=== PATIENT | male | born 1960 | race Caucasian/White ===

== ENCOUNTER 2023-03-19 09:04 | Outpatient (REF) | payer OTHER, SELFPAY ==
[2023-03-19 11:14] LABS: MANUAL DIFF FLAG NO
[2023-03-19 11:17] LABS: Basophils Percent Auto 0.5 % (0-2); Eosinophils Absolute Auto 0.1 X10*3/uL (0.0-0.4); Eosinophils Percent Auto 0.8 % (0-4); Hematocrit 35.7 % (42.0-52.0); Hemoglobin 12.7 g/dl (14.0-18.0); Imm Gran Abs Auto 0.04 X10*3/uL (0.00-0.03); Imm Gran Pct Auto 0.7 % (0.0-0.4); Lymphocytes Absolute Auto 1.7 X10*3/uL (1.2-4.9); Lymphocytes Percent Auto 28.6 % (20-40); Mean Corpuscular HGB Conc 35.6 g/dl (31.0-36.0); Mean Corpuscular Hemoglobin 33.8 pg (27.0-33.0); Mean Corpuscular Volume 94.9 fL (80.0-98.0); Mean Platelet Volume 8.4 fL (9.4-12.4); Monocytes Absolute Auto 0.7 X10*3/uL (0.1-1.2); Monocytes Percent Auto 12.3 % (2-11); Neutrophils Absolute Auto 3.4 x10*3/uL (2.0-8.3); Neutrophils Percent Auto 57.1 % (45-73); Platelet Count 342 X10*3/uL (160-400); Red Blood Count 3.76 X10*6/uL (4.60-5.80); Red Cell Distribution Width 11.9 % (11.0-16.0); White Blood Count 5.9 X10*3/uL (4.8-10.8)
[2023-03-19 12:16] LABS: Alanine Aminotransferase 15 U/L (0-40); Albumin Level 4.1 g/dL (3.5-5.0); Alkaline Phosphatase 59 U/L (39-117); Anion Gap 11 (12-20); Aspartate Amino Transferase 15 U/L (5-37); Bilirubin Total 0.8 mg/dL (0.0-1.0); Blood Urea Nitrogen 7 mg/dL (9-16); Calcium 9.3 mg/dL (8.4-10.2); Carbon Dioxide 26 mmol/L (22-29); Chloride 92 mmol/L (96-108); Cholesterol 164 mg/dL; Estimated Glomerular Filt Rate > 60; Glucose Random 94 mg/dL (60-115); HDL Cholesterol 53 mg/dL; Potassium 4.4 mmol/L (3.3-5.1); Sodium 125 mmol/L (135-145); Total Protein 6.7 g/dL (6.5-8.0)
[2023-03-19 13:13] LABS: Prostate Specific Antigen 0.14 ng/mL (<0.05-4.0); Vitamin B12 931 pg/mL (200-900); Vitamin D 25-OH Total 40.2 ng/mL (>30)
[2023-03-19 16:59] LABS: LDL Cholesterol Calculated 99 mg/dl; Triglycerides 63 mg/dL
== END 2023-03-19 09:05 | disposition home or self-care (01) ==
LOC: HO.HMGCLDS 09:04
PROVIDERS: Visit Provider Internal Medicine
DX: Z12.5 Encounter for screening for malignant neoplasm of prostate (principal); I10 Essential (primary) hypertension; E55.9 Vitamin D deficiency, unspecified
CPT/HCPCS: 36415; 80053; 80061; 82306; 82607; 84153; 85025

== ENCOUNTER 2023-07-13 15:42 | Outpatient (REF) | payer OTHER, SELFPAY ==
[2023-07-13 17:52] LABS: Alanine Aminotransferase 14 U/L (0-40); Albumin Level 4.2 g/dL (3.5-5.0); Alkaline Phosphatase 63 U/L (39-117); Anion Gap 11 (12-20); Aspartate Amino Transferase 18 U/L (5-37); Blood Urea Nitrogen 11 mg/dL (9-16); Calcium 9.4 mg/dL (8.4-10.2); Carbon Dioxide 26 mmol/L (22-29); Chloride 94 mmol/L (96-108); Estimated Glomerular Filt Rate > 60; Glucose Random 90 mg/dL (60-115); Potassium 4.2 mmol/L (3.3-5.1); Sodium 127 mmol/L (135-145); Total Protein 7.3 g/dL (6.5-8.0)
[2023-07-13 18:00] LABS: Bilirubin Total < 0.5 mg/dL (0.0-1.0)
== END 2023-07-13 15:43 | disposition home or self-care (01) ==
LOC: HO.MANLDS 15:42
PROVIDERS: Visit Provider Internal Medicine
DX: E87.1 Hypo-osmolality and hyponatremia (principal)
CPT/HCPCS: 36415; 80053

== ENCOUNTER 2024-02-24 10:52 | Outpatient (REF) | payer OTHER, SELFPAY ==
[2024-02-24 13:45] LABS: MANUAL DIFF FLAG NO
[2024-02-24 13:54] LABS: Basophils Absolute Auto 0.1 X10*3/uL (0.0-0.2); Basophils Percent Auto 0.8 % (0-2); Eosinophils Absolute Auto 0.4 X10*3/uL (0.0-0.4); Eosinophils Percent Auto 4.5 % (0-4); Hematocrit 36.5 % (42.0-52.0); Hemoglobin 12.8 g/dl (14.0-18.0); Imm Gran Abs Auto 0.03 X10*3/uL (0.00-0.03); Imm Gran Pct Auto 0.3 % (0.0-0.4); Lymphocytes Absolute Auto 2.5 X10*3/uL (1.2-4.9); Lymphocytes Percent Auto 28.7 % (20-40); Mean Corpuscular HGB Conc 35.1 g/dl (31.0-36.0); Mean Corpuscular Volume 94.1 fL (80.0-98.0); Mean Platelet Volume 8.7 fL (9.4-12.4); Monocytes Absolute Auto 0.9 X10*3/uL (0.1-1.2); Monocytes Percent Auto 10.6 % (2-11); Neutrophils Absolute Auto 4.8 x10*3/uL (2.0-8.3); Neutrophils Percent Auto 55.1 % (45-73); Platelet Count 335 X10*3/uL (160-400); Red Blood Count 3.88 X10*6/uL (4.60-5.80); Red Cell Distribution Width 11.9 % (11.0-16.0); White Blood Count 8.7 X10*3/uL (4.8-10.8)
[2024-02-24 14:08] LABS: Alanine Aminotransferase 16 U/L (0-40); Albumin Level 4.4 g/dL (3.5-5.0); Alkaline Phosphatase 66 U/L (39-117); Anion Gap 11 (12-20); Aspartate Amino Transferase 18 U/L (5-37); Bilirubin Total 0.6 mg/dL (0.0-1.0); Blood Urea Nitrogen 7 mg/dL (9-16); Calcium 9.5 mg/dL (8.4-10.2); Carbon Dioxide 27 mmol/L (22-29); Chloride 90 mmol/L (96-108); Cholesterol 169 mg/dL (<200); Estimated Glomerular Filt Rate > 60; Glucose Random 94 mg/dL (60-115); HDL Cholesterol 66 mg/dL (>40); LDL Cholesterol Calculated 90 mg/dL (<100); Potassium 3.9 mmol/L (3.3-5.1); Sodium 124 mmol/L (135-145); Total Protein 7.7 g/dL (6.5-8.0); Triglycerides 68 mg/dL (<150)
[2024-02-24 14:21] LABS: Prostate Specific Antigen 0.28 ng/mL (<0.05-4.0)
== END 2024-02-24 10:53 | disposition home or self-care (01) ==
LOC: HO.HMGCLDS 10:52
PROVIDERS: PCP Internal Medicine; Visit Provider Internal Medicine
DX: Z12.5 Encounter for screening for malignant neoplasm of prostate (principal); I10 Essential (primary) hypertension
CPT/HCPCS: 36415; 80053; 80061; 84153; 85025

== ENCOUNTER 2025-07-05 13:33 | Outpatient (REF) | payer OTHER, SELFPAY ==
--- OUTSIDE RECORDS SUMMARY | 2025-07-05 13:36 | XMS_ITS | Encounter Summary ---
Author Organization [facility] Address [address] [facility] [address] [place] [address] Phone Care Team Providers Care Signal Apprentice Name Role Phone NorthJony rosado Tarik PASCUAL Unavailable Joanna Faulkner SURVEYING OR SPATIAL SCIENCE TECHNICIAN Unavailable [phone] Gina Mayfield MD Unavailable [phone] Jony Hill DO Primary Care Provider [phone] Encounter Details Date Type Department Care Team (Latest Contact Info) Description 10/23/2019 Transcribe Orders [facility] [address] [place] [address] Andrés Amezquita MD [address] [place] [address], [address] [place] [address] [email or web address] Hyposmolality syndrome (Primary Dx); Benign hypertension Social History Tobacco Use Types Packs/Day Years Used Date Smoking Tobacco: Former Cigarettes Q uit: 2008 Smokeless Tobacco: Never Alcohol Use Standard Drinks/Week Comments Yes 0 (1 standard drink = 0.6 oz pur e alcohol) a few times a week Sex and Gender Information Value Date Recorded Sex Assigned at Not on file Legal Sex Male 9:45 PM EDT Gender Identity Not on file Sexual Orientation Not on file documented as of this encounter Plan of Treatment Not on file documented as of this encounter Results * Osmolality, Random Urine (10/23/2019 8:02 AM EST) URINE OSMOLALITY 340 mOsm/kg water [facility] Urine (Urine) 10/23/2019 8:0 2 AM EST 10/23/2019 8:03 AM EST us Andrés Amezquita MD URINE ORDERABLES Final Result Performing Organization Address [facility] de Phone Number [address] [address] * Sodium, random urine (10/23/2019 8:02 AM EST) URINE SODIUM 106 mmol/L [facility] Urine (Urine) 10/23/2019 8:0 2 AM EST 10/23/2019 8:03 AM EST us Andrés Amezquita MD URINE ORDERABLES Final Result Performing Organization Address [facility] de Phone Number [address] [address] * Albumin (10/23/2019 7:54 AM EST) ALBUMIN 4.5 3.9 - 4.8 g/dL [facility] Blood 10/23/2019 7:54 AM EST 10/23/2019 8:02 AM EST us Andrés Amezquita MD LAB BLOOD ORDERABLES Final Re sult Performing Organization Address [facility] Co de Phone Number [address] [address] * Magnesium (10/23/2019 7:54 AM EST) MAGNESIUM 2.0 1.6 - 2.6 mg/dL [facility] Blood 10/23/2019 7:54 AM EST 10/23/2019 8:02 AM EST us Andrés Amezquita MD LAB BLOOD ORDERABLES Final Re sult Performing Organization Address [facility] Co de Phone Number [address] [address] * Phosphorus (10/23/2019 7:54 AM EST) PHOSPHORUS 3.1 2.7 - 4.5 mg/dL [facility] Blood 10/23/2019 7:54 AM EST 10/23/2019 8:02 AM EST us Andrés Amezquita MD LAB BLOOD ORDERABLES Final Re sult [address] [address] * (ABNORMAL) Osmolality, serum (10/23/2019 7:54 AM EST) OSMOLALITY 270(L) 289 - 308 mOsm/kg water [facility] Blood 10/23/2019 7:54 AM EST 10/23/2019 8:02 AM EST us Andrés Amezquita MD LAB BLOOD ORDERABLES Final Re sult Performing Organization Address [facility]/ZIP Co de Phone Number [address] [address] * Free T4 (10/23/2019 7:54 AM EST) FREE T4 1.7 0.9 - 1.7 ng/dL [facility] Blood 10/23/2019 7:54 AM EST 10/23/2019 8:02 AM EST us Andrés Amezquita MD LAB BLOOD ORDERABLES Final Re sult Performing Organization Address [facility] Co de Phone Number [address] [address] * TSH (10/23/2019 7:54 AM EST) TSH 1.94 0.27 - 4.20 uIU/mL [facility] Blood 10/23/2019 7:54 AM EST 10/23/2019 8:02 AM EST us Andrés Amezquita MD LAB BLOOD ORDERABLES Final Re sult [facility] [address] [place] [address] * (ABNORMAL) CBC and differential (10/23/2019 7:54 AM EST) WBC 8.12 3.40 - 11.20 K/uL [facility] RBC 4.36(L) 4.50 - 5.50 M/uL [facility] HGB 14.3 13.0 - 17.0 g/dL [facility] HCT 41.0 40.0 - 51.0 % [facility] PLT 258 130 - 400 K/uL [facility] MCV 94.0 79.0 - 98.0 fL [facility] MCH 32.8 27.0 - 34.8 pg [facility] MCHC 34.9 31.5 - 36.0 g/dL [facility] RDW 12.2 10.8 - 14.6 % [facility] MPV 9.0(L) 9.4 - 12.4 fl [facility] NRBC 0.00 0.00 /100 WBCs [facility] ABSOLUTE NRBC 0.00 0.00 K/uL [facility] DIFF METHOD Auto [facility] NEUTS 58.7 45.30 - 77.70 % [facility] LYMPHS 25.4 12.30 - 39.70 % [facility] MONOS 11.8 4.10 - 12.80 % [facility] EOS 3.0 0 - 7.2 % [facility] BASOS 0.7 0 - 2.80 % [facility] Granulocytes, immature (%) 0.4 0.0 - 0.9 % [facility] ABSOLUTE NEUTS 4.77 1.40 - 7.70 K/uL [facility] ABSOLUTE LYMPHS 2.06 0.60 - 3.20 K/uL [facility] ABSOLUTE MONOS 0.96(H) 0.11 - 0.59 K/uL [facility] ABSOLUTE EOS 0.24 0.01 - 0.50 K/uL [facility] ABSOLUTE BASOS 0.06 0.00 - 0.08 K/uL [facility] Granulocytes, immature 0.03 0.00 - 0.05 K/uL [facility] Blood 10/23/2019 7:54 AM EST 10/23/2019 8:02 AM EST us Andrés Amezquita MD LAB BLOOD ORDERABLES Final Re sult Performing Organization Address City/[facility]/ZIP Co de Phone Number [address] [address] * (ABNORMAL) Basic metabolic panel (10/23/2019 7:54 AM EST) SODIUM 127(L) 133 - 146 mmol/L [facility] CHLORIDE 90(L) 96 - 108 mmol/L [facility] POTASSIUM 4.2 3.3 - 5.1 mmol/L [facility] CO2 26 21 - 35 mmol/L [facility] BUN 7 6 - 19 mg/dL [facility] CREATININE 0.60 0.5 - 1.5 mg/dL [facility] GLUCOSE 108(H) 70 - 99 mg/dL [facility] CALCIUM 9.8 8.4 - 10.3 mg/dL [facility] EGFR 112 >59 mL/min/1.7 3m2 [facility] Comment:If patient is black, multiply result by 1.159. Estimated glomerular filtration rate calculated using the CKD-EPI equation. ANION GAP 15 10 - 20 mmol/L [facility] Blood 10/23/2019 7:54 AM EST 10/23/2019 8:02 AM EST us Andrés Amezquita MD LAB BLOOD ORDERABLES Final Re sult [address] [address] documented in this encounter Visit Diagnoses Diagnosis Hyposmolality syndrome- Primary Hyposmolality and/or hyponatremia Benign hypertension Essential hypertension, benign documented in this encounter Care Teams Signal Apprentice Relationship Specialty Start Date End Date Jony Hill DO [email or web address] PCP - General 11/24/17 Jony Hill DO Historical LMR Provider 09/05/17 Joanna Faulkner NP [address] [place] [address] [email or web address] Historical LMR Provider 09/05/17 2 Gina Mayfield MD [address] [place] [address] [facility], [place] [address] Historical LMR Provider 09/05/17 documented as of this encounter Additional Source Comments The information contained in this document represents components of the legal health record. It is not the complete legal health record.[facility]
--- OUTSIDE RECORDS SUMMARY | 2025-07-05 13:36 | XMS_ITS | Clinical Summary ---
Author Organization [facility], Address [address] [facility] [address] [place] [address] Phone Care Team Providers Care Associate Professor Of Art History Name Role Phone Jony Hill DO Primary Care Provider [phone] Allergies Active Allergy Reactions Criticality Noted Date Comments Demeclocycline Rash Medium 05/27/2020 Medications ibuprofen (ADVIL,MOTRIN) 200 MG tablet Take 400 mg by mouth every 6 (six) hours if needed 8 Active propranolol LA (INDERAL LA) 120 MG 24 hr capsule Take 1 capsule by mouth 1 (one) time each day Active cyanocobalamin (VITAMIN B-12) 1000 MCG tablet Take 1 tablet by mouth 1 (one) time each day Active NIFEdipine CC (ADALAT CC) 30 MG 24 hr tablet Take 1 tablet by mouth 1 (one) time each day Active Multiple Vitamin (MULTIVITAMINS PO) Take 1 capsule by mouth 1 (one) time each day Active acetaminophen (TYLENOL) 325 MG tablet Take 650 mg by mouth 8 Active halobetasol (ULTRAVATE) 0.05 % cream halobetasol propionate 0.05 % topical cream PLEASE SEE ATTACHED FOR DETAILED DIRECTIONS Active Active Problems Problem Noted Date Diagnosed Date 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 Essential hypertension 02/15/2018 Hyponatremia 02/15/2018 Immunizations Immunization Administration Dates Next Due Influenza, Quadrivalent, Preservative Free 07/30,09/22/2019 Influenza, Quadrivalent, With Preservative 09/13 [employer] SARS-COV-2 03/15/2021,03/05/2021 Zoster 10/31/2020,07/30/2020 Family History Medical History Relation Comments Heart disease Father Hypertension Paternal Grandmother Relation Status Comments Father Alive Mother Alive Paternal Grandmother Social History Tobacco Use Types Packs/Day Years Used Date Smoking Tobacco: Former Cigarettes Comments:Smoking History Inf o:Every day Alcohol Use Standard Drinks/Week Comments Yes 0 (1 standard drink = 0.6 oz pure alcohol) Alcoholic Drinks/day: 1-2 drinks per day Sex and Gender Information Value Date Recorded Sex Assigned at Not on file Legal Sex Male 4:33 PM EST Gender Identity Not on file Sexual Orientation Not on file Occupation Industry Job Start Date Job End Date [employer] Not on file Not on file Not on file Last Filed Vital Signs Vital Sign Reading Time Taken Comments Blood Pressure 118/65 08/25/2021 2:22 PM EDT Pulse 68 08/25/2021 2:22 PM EDT Temperature 36.7 C (98 F) 01/17/2020 3:19 PM EST Respiratory Rate 14 08/25/2021 2:22 PM EDT Oxygen Saturation - - Inhaled Oxygen Concentration - - Weight 81.2 kg (179 lb) 08/25/2021 2:22 PM EDT Height 177.8 cm (5' 10 ) 08/25/2021 2:22 PM EDT Body Mass Index 25.68 08/25/2021 2:22 PM EDT Plan of Treatment Health Maintenance Due Date Last Done Comments Colorectal Cancer Screening: Annual FOBT 2011 Colorectal Cancer Screening: Colonoscopy 2011 Colorectal Cancer Screening: Sigmoidoscopy 2011 Pneumococcal Vaccine: 50+ Years (1 of 1 - PCV) 2012 Influenza Vaccine (#1) 2025 0, 09/22/2019, 09/13/2018 Hepatitis B Vaccine Aged Out No longe r eligible based on patient's age to complete this topic Insurance Care Teams Associate Professor Of Art History Relationship Specialty Start Date End Date Jony Hill DO [facility] [place] [address] PCP - General 09/25/19
[2025-07-05 16:16] LABS: MANUAL DIFF FLAG NO
[2025-07-05 16:37] LABS: Hematocrit 35.6 % (42.0-52.0); Hemoglobin 12.3 g/dl (14.0-18.0); Imm Gran Abs Auto 0.05 X10*3/uL (0.00-0.03); Imm Gran Pct Auto 0.6 % (0.0-0.4); Lymphocytes Absolute Auto 2.7 X10*3/uL (1.2-4.9); Mean Corpuscular HGB Conc 34.6 g/dl (31.0-36.0); Mean Corpuscular Hemoglobin 33.2 pg (27.0-33.0); Mean Corpuscular Volume 96.2 fL (80.0-98.0); NRBC Abs Auto 0.000 X10*3/uL (0.0-0.012); NRBC Pct Auto 0.0 /100WBC (0.0-0.2); Platelet Count 320 X10*3/uL (160-400); Red Blood Count 3.70 X10*6/uL (4.60-5.80); White Blood Count 8.6 X10*3/uL (4.8-10.8)
[2025-07-05 16:50] LABS: Alanine Aminotransferase 18 U/L (0-40); Albumin Level 4.5 g/dL (3.5-5.0); Alkaline Phosphatase 64 U/L (39-117); Anion Gap 10 (12-20); Aspartate Amino Transferase 31 U/L (5-37); Blood Urea Nitrogen 11 mg/dL (9-16); Calcium 9.2 mg/dL (8.4-10.2); Carbon Dioxide 26 mmol/L (22-29); Chloride 95 mmol/L (96-108); Cholesterol 180 mg/dL (<200); Estimated Glomerular Filt Rate > 60; HDL Cholesterol 60 mg/dL (>40); Potassium 3.9 mmol/L (3.3-5.1); Sodium 127 mmol/L (135-145); Total Protein 7.2 g/dL (6.5-8.0); Triglycerides 130 mg/dL (<150)
[2025-07-05 17:14] LABS: Prostate Specific Antigen 0.35 ng/mL (<0.05-4.0)
== END 2025-07-05 13:34 | disposition home or self-care (01) ==
LOC: HO.HMGCLDS 13:33
PROVIDERS: PCP Internal Medicine; Visit Provider Internal Medicine
DX: Z12.5 Encounter for screening for malignant neoplasm of prostate (principal); I10 Essential (primary) hypertension
CPT/HCPCS: 36415; 80053; 80061; 84153; 85025